=== PATIENT | female | born 1960 | race Caucasian/White ===

== ENCOUNTER 2022-08-07 16:07 | Inpatient (IN) | payer SELFPAY ==
[2022-08-07 17:08] LABS: #Basophils 0.1 thou/uL (0.0-0.2); #Eosinphils 0.2 thou/uL (0.0-0.7); #Lymphocytes 1.5 thou/uL (1.20-3.40); #Monocytes 0.6 thou/uL (0.11-0.59); %Basophils 0.8 % (0.0-1.0); %Eosinophils 2.2 % (0.0-10.0); %Lymphocytes 15.8 % (21.0-51.0); %Monocytes 6.1 % (0.0-10.0); %Neutrophils 75.1 % (42.0-75.0); Hemoglobin 12.1 g/dL (12.0-16.0); Mean Corpuscular HGB CONC 33.2 g/dL (32.0-36.0); Mean Corpuscular Hemoglobin 31.5 pg (27.0-31.0); Mean Corpuscular Volume 94.6 fl (78.0-98.0); Mean Platelet Volume 7.6 fL (7.4-10.4); Platelet Count 337 10x3/uL (130-400); RBC Distribution Width 11.7 % (11.5-14.5); Red Blood Cell (RBC) Count 3.84 mill/uL (4.20-5.40); White Blood Cell (WBC) Count 9.3 10x3/uL (4.8-10.8)
[2022-08-07 17:22] LABS: INR-International Normal Ratio 0.9; PTT 29.1 sec (22.9-36.1)
[2022-08-07 17:29] LABS: ALT (SGPT) 37 U/L (8-55); AST (SGOT) 55 U/L (5-34); Albumin 3.7 g/dL (3.5-5.0); Alkaline Phosphatase 67 U/L (40-110); Anion Gap 15 mmol/L (10-20); BUN (Urea Nitrogen) 22 mg/dL (9.8-20.1); Bilirubin, Total 0.2 mg/dL (0.2-1.2); Calc. Creatinine Clearance 0 mL/min (70-130); Calcium 8.7 mg/dL (7.8-10.44); Carbon Dioxide 19 mmol/L (22-29); Chloride 106 mmol/L (98-107); Estimated GFR 66; Globulin 3.5 g/dL (2.4-3.5); Glucose 79 mg/dL (70-105); Potassium 3.6 mmol/L (3.5-5.1); Protein, Total 7.2 g/dL (6.0-8.3); Sodium 136 mmol/L (136-145)
[2022-08-07] MEDS ORDERED: Morphine 4 MG/ML VIAL ONE (18:03)
[2022-08-07] MEDS ORDERED: Dextrose 5% in Water 1,000 ML IV PRN (19:45)
[2022-08-07] MEDS ORDERED: Sodium Chloride 0.9% 1,000 ML IV SCH (19:45)
[2022-08-07] MEDS ORDERED: Dextrose 50% Abboject 50 ML SYRINGE SLOW IVP PRN (19:45)
[2022-08-07] MEDS ORDERED: Ondansetron PF 4 MG/2 ML Vial IVP PRN (19:45)
[2022-08-07] MEDS ORDERED: Ondansetron ODT 4 MG TAB PO PRN (19:45)
[2022-08-07] MEDS ORDERED: TETANUS, DIPHTHERIA TOX,ADULT (TDVAX) 0.5 ML VIAL IM ONE (19:45)
[2022-08-07] MEDS ORDERED: HYDROmorphone 0.5 MG/0.5 ML SYRINGE SLOW IVP PRN (19:48)
[2022-08-07] MEDS ORDERED: ALPRAZolam 0.25 MG TAB PO PRN (19:49)
[2022-08-07] MEDS: Famotidine 20 MG TAB PO SCH (20:25)
[2022-08-07] MEDS: Acetaminophen 500 MG TAB PO SCH (20:25)
[2022-08-07] MEDS: traMADol HCl 50 MG TAB PO SCH (20:26)
[2022-08-07] MEDS: Ibuprofen 200 MG TAB PO SCH (20:26)
[2022-08-07 21:25] LABS: SARS-CoV-2 NAA Rapid Test Not Detected (NotDetected)
[2022-08-08] MEDS: Lactated Ringer's 1,000 ML IV SCH ×2 (01:13→04:23)
[2022-08-08 02:08] VITALS: BMI 17.4
[2022-08-08] MEDS: Acetaminophen 500 MG TAB PO SCH ×4 (02:25→19:39)
[2022-08-08] MEDS: traMADol HCl 50 MG TAB PO SCH ×4 (02:26→19:40)
[2022-08-08] MEDS: Ibuprofen 200 MG TAB PO SCH ×4 (02:26→19:41)
[2022-08-08] MEDS ORDERED: CEFAZOLIN 2 GM in Sodium Chloride 0.9% 100 ML IVPB SCH (07:15)
[2022-08-08] MEDS: Famotidine 20 MG TAB PO SCH ×2 (08:21→20:02)
[2022-08-08 11:21] LABS: Bilirubin Negative (Negative); Blood, Urine Negative (Negative); Clarity Clear (Clear); Glucose, Urine (Dipstick) Normal (Negative); Ketone, Urine 10 mg/dL (Negative); Leukocyte Negative Leu/uL (Negative); Nitrite Negative (Negative); Protein, Urine (Dipstick) Negative (Neg-Trace); Specific Gravity, Urine 1.023 (1.002-1.036); Urobilinogen Normal mg/dL (Less than 2); pH, Urine 5.5 (5.0-9.0)
[2022-08-08] MEDS ORDERED: Sodium Chloride 0.9% 100 ML ONE (15:02)
[2022-08-08] MEDS ORDERED: CEFAZOLIN 2 GM VIAL ONE (15:02)
[2022-08-08] MEDS ORDERED: fentaNYL PF 100 MCG/2 ML SYRINGE ONE (15:21)
[2022-08-08] MEDS ORDERED: ePHEDrine 50 MG/ML VIAL ONE (15:25)
[2022-08-08] MEDS ORDERED: Ondansetron PF 4 MG/2 ML Vial ONE (15:25)
[2022-08-08] MEDS ORDERED: Succinylcholine Chloride 100 MG/5 ML SYRINGE FS ONE (15:25)
[2022-08-08] MEDS ORDERED: Dexamethasone 20 MG/5 ML VIAL ONE (15:25)
[2022-08-08] MEDS ORDERED: Rocuronium Bromide 10 MG/ML (10ML VIAL) ONE (15:25)
[2022-08-08] MEDS ORDERED: PROPOFOL 200 MG/20 ML VIAL ONE (15:25)
[2022-08-08] MEDS ORDERED: Glycopyrrolate 0.2 MG/ML 5 ML SYRINGE ONE (15:25)
[2022-08-08] MEDS ORDERED: NEOSTIGMINE 3 MG/3 ML SYR 3 MG/3 ML SYRINGE ONE (15:25)
[2022-08-08] MEDS ORDERED: Lidocaine 1% PF 5 ML VIAL ONE (15:25)
[2022-08-08] MEDS ORDERED: Ondansetron HCl/PF 4 MG/2 ML Vial IVP PRN (16:27)
[2022-08-08] MEDS ORDERED: Promethazine HCl 25 MG/ML VIAL IM PRN (16:27)
[2022-08-08] MEDS ORDERED: Morphine Sulfate 2 MG/ML SYRINGE SLOW IVP PRN (16:27)
[2022-08-08] MEDS ORDERED: Meperidine HCl/PF 25 MG/ML VIAL SLOW IVP PRN (16:27)
[2022-08-08] MEDS ORDERED: HYDROmorphone 2 MG/ML VIAL SLOW IVP PRN (16:27)
[2022-08-08] MEDS ORDERED: Fentanyl 100 MCG/2 ML VIAL ONE (16:51)
[2022-08-08] MEDS: CEFAZOLIN 2 GM in Sodium Chloride 0.9% 100 ML IVPB SCH (22:05)
[2022-08-09] MEDS: Acetaminophen 500 MG TAB PO SCH ×4 (02:11→19:59)
[2022-08-09] MEDS: traMADol HCl 50 MG TAB PO SCH ×4 (02:12→19:59)
[2022-08-09] MEDS: Ibuprofen 200 MG TAB PO SCH (02:12)
[2022-08-09] MEDS: CEFAZOLIN 2 GM in Sodium Chloride 0.9% 100 ML IVPB SCH (05:37)
[2022-08-09 06:30] LABS: #Lymphocytes 0.8 thou/uL (1.20-3.40); #Monocytes 0.5 thou/uL (0.11-0.59); #Neutrophils 7.9 thou/uL (1.40-6.50); %Eosinophils 0.1 % (0.0-10.0); %Lymphocytes 8.3 % (21.0-51.0); %Monocytes 5.4 % (0.0-10.0); %Neutrophils 86.2 % (42.0-75.0); Hemoglobin 9.3 g/dL (12.0-16.0); Mean Corpuscular HGB CONC 33.4 g/dL (32.0-36.0); Mean Corpuscular Hemoglobin 32.1 pg (27.0-31.0); Mean Corpuscular Volume 96.3 fl (78.0-98.0); Mean Platelet Volume 7.8 fL (7.4-10.4); Platelet Count 281 10x3/uL (130-400); RBC Distribution Width 11.7 % (11.5-14.5); Red Blood Cell (RBC) Count 2.89 mill/uL (4.20-5.40); White Blood Cell (WBC) Count 9.1 10x3/uL (4.8-10.8)
[2022-08-09 06:50] LABS: Anion Gap 11 mmol/L (10-20); BUN (Urea Nitrogen) 22 mg/dL (9.8-20.1); Calc. Creatinine Clearance 41 mL/min (70-130); Calcium 7.5 mg/dL (7.8-10.44); Carbon Dioxide 19 mmol/L (22-29); Chloride 106 mmol/L (98-107); Estimated GFR 57; Glucose 247 mg/dL (70-105); Magnesium 1.7 mg/dL (1.6-2.6); Potassium 3.9 mmol/L (3.5-5.1); Sodium 132 mmol/L (136-145)
[2022-08-09] MEDS ORDERED: Magnesium 2 GM/50 ML(in water) 2 GM in Premix Bag 1 BAG IVPB SCH (07:45)
[2022-08-09] MEDS ORDERED: Lactated Ringer's 1,000 ML IV SCH (07:45)
[2022-08-09] MEDS: Famotidine 20 MG TAB PO SCH ×2 (08:23→20:00)
[2022-08-09] MEDS: traMADol HCl 50 MG TAB PO PRN (11:46)
[2022-08-10] MEDS: Acetaminophen 500 MG TAB PO SCH ×4 (02:01→20:15)
[2022-08-10] MEDS: traMADol HCl 50 MG TAB PO SCH ×4 (02:02→20:16)
[2022-08-10 06:21] LABS: #Eosinphils 0.1 thou/uL (0.0-0.7); #Lymphocytes 2.9 thou/uL (1.20-3.40); #Neutrophils 6.4 thou/uL (1.40-6.50); %Basophils 0.3 % (0.0-1.0); %Eosinophils 1.2 % (0.0-10.0); %Lymphocytes 27.5 % (21.0-51.0); %Monocytes 9.5 % (0.0-10.0); %Neutrophils 61.5 % (42.0-75.0); Hemoglobin 8.4 g/dL (12.0-16.0); Mean Corpuscular HGB CONC 33.1 g/dL (32.0-36.0); Mean Corpuscular Hemoglobin 31.7 pg (27.0-31.0); Mean Corpuscular Volume 95.8 fl (78.0-98.0); Mean Platelet Volume 7.7 fL (7.4-10.4); Platelet Count 272 10x3/uL (130-400); RBC Distribution Width 11.9 % (11.5-14.5); Red Blood Cell (RBC) Count 2.66 mill/uL (4.20-5.40); White Blood Cell (WBC) Count 10.4 10x3/uL (4.8-10.8)
[2022-08-10 06:40] LABS: Anion Gap 7 mmol/L (10-20); BUN (Urea Nitrogen) 21 mg/dL (9.8-20.1); Calc. Creatinine Clearance 48 mL/min (70-130); Calcium 7.6 mg/dL (7.8-10.44); Carbon Dioxide 24 mmol/L (22-29); Chloride 110 mmol/L (98-107); Estimated GFR 70; Glucose 87 mg/dL (70-105); Magnesium 2.2 mg/dL (1.6-2.6); Phosphorus 1.8 mg/dL (2.3-4.7); Potassium 4.4 mmol/L (3.5-5.1); Sodium 137 mmol/L (136-145)
[2022-08-10] MEDS: Famotidine 20 MG TAB PO SCH ×2 (08:38→20:15)
[2022-08-10] MEDS: traMADol HCl 50 MG TAB PO PRN (11:30)
[2022-08-10] MEDS: Ferrous Sulfate 325 MG TAB PO SCH (11:36)
[2022-08-10] MEDS: Ascorbic Acid 500 mg Chewable Tablet PO SCH (11:36)
[2022-08-11] MEDS: Acetaminophen 500 MG TAB PO SCH ×3 (02:17→16:16)
[2022-08-11] MEDS: traMADol HCl 50 MG TAB PO SCH ×3 (02:18→16:18)
[2022-08-11 06:02] LABS: #Basophils 0.1 thou/uL (0.0-0.2); #Eosinphils 0.3 thou/uL (0.0-0.7); #Lymphocytes 2.5 thou/uL (1.20-3.40); #Monocytes 0.8 thou/uL (0.11-0.59); %Basophils 0.6 % (0.0-1.0); %Eosinophils 3.8 % (0.0-10.0); %Monocytes 9.1 % (0.0-10.0); %Neutrophils 57.5 % (42.0-75.0); Hemoglobin 9.2 g/dL (12.0-16.0); Mean Corpuscular HGB CONC 33.5 g/dL (32.0-36.0); Mean Corpuscular Hemoglobin 32.3 pg (27.0-31.0); Mean Corpuscular Volume 96.3 fl (78.0-98.0); Mean Platelet Volume 7.7 fL (7.4-10.4); Platelet Count 281 10x3/uL (130-400); RBC Distribution Width 11.9 % (11.5-14.5); Red Blood Cell (RBC) Count 2.84 mill/uL (4.20-5.40); White Blood Cell (WBC) Count 8.7 10x3/uL (4.8-10.8)
[2022-08-11 07:07] LABS: Anion Gap 10 mmol/L (10-20); BUN (Urea Nitrogen) 16 mg/dL (9.8-20.1); Calc. Creatinine Clearance 53 mL/min (70-130); Carbon Dioxide 25 mmol/L (22-29); Chloride 107 mmol/L (98-107); Estimated GFR 78; Glucose 95 mg/dL (70-105); Phosphorus 2.7 mg/dL (2.3-4.7); Potassium 4.5 mmol/L (3.5-5.1); Sodium 137 mmol/L (136-145)
[2022-08-11] MEDS ORDERED: PHOS-NAK 1 PKT PACK PO SCH (08:00)
[2022-08-11] MEDS: Ascorbic Acid 500 mg Chewable Tablet PO SCH (08:58)
[2022-08-11] MEDS: Famotidine 20 MG TAB PO SCH (08:59)
[2022-08-11] MEDS ORDERED: FLU VACC QS2022-23(6MOS UP)/PF 60 MCG/0.5 ML SYRINGE IM ONE (09:00)
[2022-08-11] MEDS ORDERED: Aspirin 81 mg Enteric Coated Tablet PO SCH (09:00)
[2022-08-11] MEDS: Ferrous Sulfate 325 MG TAB PO SCH (11:48)
[2022-08-11 16:57] VITALS: BP 143/85; TEMP 98.1
== END 2022-08-11 18:18 | disposition home or self-care (01) | DRG 481 ==
LOC: ERS 16:07 → EEVIPCON 17:16 → SURG B 17:16
PROVIDERS: ADMIT Surgery; ATTEND Surgery
PROC: 0QS706Z Reposition Left Upper Femur with Intramedullary Internal Fixation Device, Open Approach (ICD-10-PCS; principal; 2022-08-08)
PROC: 0T9B70Z Drainage of Bladder with Drainage Device, Via Natural or Artificial Opening (ICD-10-PCS; 2022-08-09)
DX: S72.142A Displaced intertrochanteric fracture of left femur, initial encounter for closed fracture (principal); N17.9 Acute kidney failure, unspecified; I10 Essential (primary) hypertension; M81.0 Age-related osteoporosis without current pathological fracture; F41.9 Anxiety disorder, unspecified; F32.A Depression, unspecified; W19.XXXA Unspecified fall, initial encounter; Z20.822 Contact with and (suspected) exposure to COVID-19; R33.9 Retention of urine, unspecified; Z90.49 Acquired absence of other specified parts of digestive tract; Z98.51 Tubal ligation status; Y92.9 Unspecified place or not applicable
CPT/HCPCS: 36415; 36416; 71045; 80048; 80053; 81003; 83735; 84100; 85025; 85610; 85730; 90714; 96374; C1713; J1100; J2270; J2405; J2704; J3010; J3475; J3490; J7050; J7120; U0002